=== PATIENT | female | born 1990 | race Caucasian/White ===

== ENCOUNTER 2023-02-08 12:01 | Outpatient (CLI) | payer BC ==
[2023-02-08 12:21] LABS: BASOPHILS # (AUTO) 0.1 10^3/uL (0.0-0.1); BASOPHILS % (AUTO) 0.7 %; EOSINOPHILS % (AUTO) 0.3 %; HCT - HEMATOCRIT 40.8 % (37.0-47.0); HGB - HEMOGLOBIN 13.6 g/dL (12.0-16.0); LYMPHOCYTES # (AUTO) 1.9 10^3/uL (1.5-3.5); LYMPHOCYTES % (AUTO) 27.2 %; MEAN CORPUSCULAR HEMOGLOBIN 30.8 pg (27.0-31.0); MEAN CORPUSCULAR HGB CONC 33.3 g/dL (32.0-36.0); MEAN CORPUSCULAR VOLUME 92.3 fL (81.0-99.0); MEAN PLATELET VOLUME 10.8 fL (7.9-10.8); MONOCYTES # (AUTO) 0.4 10^3/uL (0.0-1.0); MONOCYTES % (AUTO) 5.6 %; NEUTROPHILS # (AUTO) 4.6 10^3/uL (1.5-6.6); NEUTROPHILS % (AUTO) 66.1 %; PLT - PLATELET COUNT 217 10^3/uL (130-450); RED BLOOD COUNT 4.42 10^6/uL (4.20-5.40)
[2023-02-08 13:21] LABS: ALBUMIN 4.3 g/dL (3.2-5.5); ALBUMIN/GLOBULIN RATIO 1.4 (1.0-2.2); BILIRUBIN,TOTAL 0.2 mg/dL (0.2-1.0); CALCIUM 9.2 mg/dL (8.5-10.3); CREATININE 0.8 mg/dL (0.4-1.0); POTASSIUM 4.1 mmol/L (3.5-5.0); TOTAL PROTEIN 7.4 g/dL (6.7-8.2); URIC ACID 4.3 mg/dL (2.6-7.2)
== END 2023-02-08 12:02 | disposition home or self-care (01) ==
LOC: LAB 12:01
PROVIDERS: ATTEND Nurse Practitioner
DX: I10 Essential (primary) hypertension (principal); Z13.0 Encounter for screening for diseases of the blood and blood-forming organs and certain disorders involving the immune mechanism
CPT/HCPCS: 36415; 80053; 82728; 84550; 85025

== ENCOUNTER 2023-02-09 08:00 | Outpatient (CLI) | payer BC ==
[2023-02-09 21:55] LABS: BACTERIAL VAGINOSIS DNA NEGATIVE (NEGATIVE); CANDIDA GLABRATA DNA NEGATIVE (NEGATIVE); CANDIDA GROUP DNA POSITIVE (NEGATIVE); CANDIDA KRUSEI DNA NEGATIVE (NEGATIVE); TRICHOMONAS VAGINALIS DNA NEGATIVE (NEGATIVE)
== END 2023-02-09 23:59 | disposition home or self-care (01) ==
LOC: LAB.WC 08:00
PROVIDERS: ATTEND Nurse Practitioner
DX: N89.8 Other specified noninflammatory disorders of vagina (principal)
CPT/HCPCS: 81514

== ENCOUNTER 2023-04-28 08:00 | Outpatient (CLI) | payer BC ==
[2023-04-28 17:00] LABS: BILIRUBIN,URINE NEGATIVE (NEGATIVE); GLUCOSE, URINE (UA) NEGATIVE (NEGATIVE); KETONES,URINE (UA) NEGATIVE (NEGATIVE); LEUKOCYTE ESTERASE, URINE NEGATIVE (NEGATIVE); NITRITE,URINE NEGATIVE (NEGATIVE); OCCULT BLOOD,URINE NEGATIVE (NEGATIVE); PROTEIN,URINE NEGATIVE (NEGATIVE); UROBILINOGEN,URINE 0.2 (NORMAL) E.U./dL (NORMAL)
[2023-04-28 17:01] LABS: CLARITY,URINE CLEAR (CLEAR)
[2023-04-28 17:07] LABS: RBC,URINE None Seen /HPF (0-5); SQUAMOUS EPITHELIAL CELL,UR FEW Squamous (<= Few); WBC,URINE 0-3 /HPF (0-5)
[2023-04-28 17:08] LABS: BACTERIA,URINE Rare /HPF (None Seen)
== END 2023-04-28 23:59 | disposition home or self-care (01) ==
LOC: LAB.WC 08:00
PROVIDERS: ATTEND Obstetrics & Gynecology
DX: Z34.90 Encounter for supervision of normal pregnancy, unspecified, unspecified trimester (principal)
CPT/HCPCS: 81001; 87086

== ENCOUNTER 2023-05-03 11:26 | Outpatient (CLI) | payer BC ==
[2023-05-03 11:48] LABS: BASOPHILS % (AUTO) 0.4 %; EOSINOPHILS % (AUTO) 0.1 %; HCT - HEMATOCRIT 39.4 % (37.0-47.0); HGB - HEMOGLOBIN 13.6 g/dL (12.0-16.0); LYMPHOCYTES # (AUTO) 1.9 10^3/uL (1.5-3.5); LYMPHOCYTES % (AUTO) 22.9 %; MEAN CORPUSCULAR HEMOGLOBIN 31.7 pg (27.0-31.0); MEAN CORPUSCULAR HGB CONC 34.5 g/dL (32.0-36.0); MEAN CORPUSCULAR VOLUME 91.8 fL (81.0-99.0); MEAN PLATELET VOLUME 10.6 fL (7.9-10.8); MONOCYTES # (AUTO) 0.4 10^3/uL (0.0-1.0); MONOCYTES % (AUTO) 4.7 %; NEUTROPHILS # (AUTO) 6.1 10^3/uL (1.5-6.6); NEUTROPHILS % (AUTO) 71.5 %; PLT - PLATELET COUNT 187 10^3/uL (130-450); RED BLOOD COUNT 4.29 10^6/uL (4.20-5.40); RED CELL DISTRIBUTION WIDTH 11.9 % (12.0-15.0); WHITE BLOOD COUNT 8.5 x10^3/uL (4.8-10.8)
[2023-05-04 03:09] LABS: HBsAG SCREEN Negative (Negative); HCV AB Non Reactive (Non Reactive); HIV SCREEN 4TH GENERATION Non Reactive (Non Reactive); RPR Non Reactive (Non Reactive)
[2023-05-04 12:09] LABS: VARICELLA-ZOSTER AB IGG 1564 index (Immune >165)
== END 2023-05-03 11:27 | disposition home or self-care (01) ==
LOC: LAB 11:26
PROVIDERS: ATTEND Obstetrics & Gynecology
DX: Z34.90 Encounter for supervision of normal pregnancy, unspecified, unspecified trimester (principal)
CPT/HCPCS: 36415; 85025; 86592; 86762; 86787; 86803; 86850; 86900; 86901; 87340; 87389

== ENCOUNTER 2023-05-06 19:28 | Outpatient (CLI) | payer BC ==
--- NOTE | 2023-05-06 22:01 | Ultrasound Report ---
PROCEDURE: OB First Trimester w/TV INDICATIONS: POSITIVE TEST OUTSIDE/PRIOR DATING DATA: Last menstrual period (LMP): 03/16/2023. TECHNIQUE: Real-time scanning was performed of the fetus and maternal pelvic organs, with image documentation. Endovaginal scanning was also performed to better visualize the fetus and maternal ovaries. COMPARISON: None. FINDINGS: Embryo: There is an intrauterine with an irregular gestational sac which demonstrates a me an sac diameter of 2.9 cm corresponding to a calculated gestational age of 8 weeks 0 days. No yolk sa c or pole identified. There is a heterogeneous subchorionic hematoma measuring approximately 1. 5 x 1.6 x 1.6 cm. Measurement variability in dating: +/- 4 weeks by LMP, +/- 7 days by mean sac diameter (use before 6 weeks gestation if crown-rump length not able to be measured), +/- 5 days by crown-rump length (6-12 weeks gestation). Maternal organs: In the right adnexa, there is a heterogeneous mass measuring approximately 3.7 x 2.9 x 3.7 cm with hyperechoic shadowing components which may represent internal fat. No internal vascula rity within the mass on color Doppler interrogation. The right ovary is otherwise not separately visu alized. The left ovary is within normal size limits. There is a hypoechoic structure within the left ovary measuring up to 2.2 cm compatible with corpus luteum. IMPRESSION: 1. Intrauterine gestational sac identified without evidence of a pole or yolk sac. The findings likely represent an anembryonic . 2. Small perigestational subchorionic hematoma. 3. Heterogeneous right adnexal mass with internal hyperechoic components compatible with fat. The fin dings are suggestive of a dermoid. Consider follow-up nonemergent evaluation with pelvic MRI for furt her evaluation. An ectopic is in the differential but considered less likely. 4. Probable corpus luteum within the left ovary. Reviewed by: Hoang Stearns MD on 05/06/2023 9:59 PM PDT Approved by: Hoang Stearns MD on 05/06/2023 9:59 PM PDT Station ID: [id number]
== END 2023-05-06 19:29 | disposition home or self-care (01) ==
LOC: DI 19:28
PROVIDERS: ATTEND Obstetrics & Gynecology
DX: O36.80X0 Pregnancy with inconclusive fetal viability, not applicable or unspecified (principal); O46.90 Antepartum hemorrhage, unspecified, unspecified trimester; O99.891 Other specified diseases and conditions complicating pregnancy; Z3A.00 Weeks of gestation of pregnancy not specified

== ENCOUNTER 2023-05-17 15:23 | Outpatient (CLI) | payer BC | END 2023-05-17 15:24 | disposition home or self-care (01) | LOC: LAB 15:23 | PROVIDERS: ATTEND Nurse Practitioner | DX: O02.0 Blighted ovum and nonhydatidiform mole (principal) | CPT/HCPCS: 36415; 84702 ==

== ENCOUNTER 2023-05-24 13:31 | Outpatient (CLI) | payer BC | END 2023-05-24 13:32 | disposition home or self-care (01) | LOC: LAB 13:31 | PROVIDERS: ATTEND Nurse Practitioner | DX: O02.0 Blighted ovum and nonhydatidiform mole (principal) | CPT/HCPCS: 36415; 84702 ==

== ENCOUNTER 2023-06-17 13:22 | Outpatient (CLI) | payer BC | END 2023-06-17 13:23 | disposition home or self-care (01) | LOC: LAB 13:22 | PROVIDERS: ATTEND Nurse Practitioner | DX: Z67.91 Unspecified blood type, Rh negative (principal) | CPT/HCPCS: 36415; 84702 ==

== ENCOUNTER 2023-07-06 12:31 | Outpatient (CLI) | payer BC | END 2023-07-06 12:32 | disposition home or self-care (01) | LOC: LAB 12:31 | PROVIDERS: ATTEND Nurse Practitioner | DX: O02.0 Blighted ovum and nonhydatidiform mole (principal); Z67.91 Unspecified blood type, Rh negative | CPT/HCPCS: 36415; 84702 ==

== ENCOUNTER 2023-07-20 11:53 | Outpatient (CLI) | payer BC | END 2023-07-20 11:54 | disposition home or self-care (01) | LOC: LAB 11:53 | PROVIDERS: ATTEND Nurse Practitioner | DX: O36.0910 Maternal care for other rhesus isoimmunization, first trimester, not applicable or unspecified (principal); O02.0 Blighted ovum and nonhydatidiform mole | CPT/HCPCS: 36415; 84702 ==

== ENCOUNTER 2024-03-05 13:58 | Outpatient (CLI) | payer BC | END 2024-03-05 13:59 | disposition home or self-care (01) | LOC: LAB 13:58 | PROVIDERS: ATTEND Nurse Practitioner | DX: Z31.69 Encounter for other general counseling and advice on procreation (principal) | CPT/HCPCS: 36415; 82166; 84144 ==

== ENCOUNTER 2024-03-08 19:30 | Outpatient (CLI) | payer BC ==
--- NOTE | 2024-03-09 16:38 | Ultrasound Report ---
PROCEDURE: Pelvic Complete INDICATIONS: FERITILITY PLANNING TECHNIQUE: Real-time transabdominal scanning was performed of the pelvic organs, with image documentation. COMPARISON: OB ultrasound on May 06, 2023 FINDINGS: Evaluation is limited secondary to transabdominal view only. Uterus: Uterus is anteverted and normal in size at 8.4 x 4.1 x 5.9 cm. The myometrium is heterogene ous. The endometrium measures 8.8 mm in combined thickness. Ovaries: The right ovary measures 5.8 x 6.2 x 4.9 cm, with a calculated ovarian volume of 92.5 cc. H eterogeneous right ovarian mass measuring 4.5 x 4.4 x 4.3 cm with hyperechoic region, previously 3.7 x 2.9 x 3.7 cm. The left ovary measures 3.1 x 2.4 x 2.7 cm, with a calculated ovarian volume of 10.3 cc. Thick walled cyst measuring 2.2 x 1.7 x 2 cm. Less than 12 follicles can be seen in each ovary. Other: No free pelvic fluid. IMPRESSION: Evaluation is limited secondary to transabdominal view only. 1.Heterogeneous right ovarian mass measuring 4.5 x 4.4 x 4.3 cm with hyperechoic region has increased in size, previously 3.7 x 2.9 x 3.7 cm. This is indeterminate. Recommend a pelvic MRI for further ev aluation. 2.Left ovarian thick walled cyst measuring 2.2 x 1.7 x 2 cm may represent an involuting corpus luteum cyst. 3.Normal sonographic appearance of the uterus with endometrial thickness of 8.8 mm. Reviewed by: Davin Jenkins MD on 03/09/2024 4:36 PM PDT Approved by: Davin Jenkins MD on 03/09/2024 4:36 PM PDT Station ID: [id number]
== END 2024-03-08 19:31 | disposition home or self-care (01) ==
LOC: DI 19:30
PROVIDERS: ATTEND Nurse Practitioner
DX: Z31.89 Encounter for other procreative management (principal); N83.8 Other noninflammatory disorders of ovary, fallopian tube and broad ligament; N83.202 Unspecified ovarian cyst, left side

== ENCOUNTER 2024-05-15 15:41 | Outpatient (CLI) | payer BC | END 2024-05-15 15:42 | disposition home or self-care (01) | LOC: LAB 15:41 | PROVIDERS: ATTEND Nurse Practitioner | DX: Z32.01 Encounter for pregnancy test, result positive (principal) | CPT/HCPCS: 36415; 84702 ==

== ENCOUNTER 2024-05-31 16:09 | Outpatient (CLI) | payer BC ==
[2024-05-31 17:00] LABS: THYROID STIMULATING HORMONE 2.1 uIU/mL (0.34-5.60)
[2024-05-31 17:05] LABS: PROLACTIN 16.46 ng/mL
[2024-05-31 22:51] LABS: ESTIMATED AVERAGE GLUCOSE 85 mg/dL (70-100); HEMOGLOBIN A1c% 4.6 % (4.27-6.07)
== END 2024-05-31 16:10 | disposition home or self-care (01) ==
LOC: LAB 16:09
PROVIDERS: ATTEND Obstetrics & Gynecology
DX: N96 Recurrent pregnancy loss (principal)
CPT/HCPCS: 36415; 83036; 84146; 84443; 85598; 85613; 85732; 86146; 86147

== ENCOUNTER 2024-08-16 13:36 | Outpatient (CLI) | payer BC | END 2024-08-16 13:37 | disposition home or self-care (01) | LOC: LAB 13:36 | PROVIDERS: ATTEND Nurse Practitioner | DX: Z32.01 Encounter for pregnancy test, result positive (principal) | CPT/HCPCS: 36415; 84702 ==

== ENCOUNTER 2024-08-18 10:28 | Outpatient (CLI) | payer BC | END 2024-08-18 10:29 | disposition home or self-care (01) | LOC: LAB 10:28 | PROVIDERS: ATTEND Nurse Practitioner | DX: Z32.01 Encounter for pregnancy test, result positive (principal) | CPT/HCPCS: 36415; 84702 ==

== ENCOUNTER 2025-11-19 08:03 | Inpatient (IN) ==
[2025-11-19] MEDS ORDERED: FAMOTIDINE 20 MG/2 ML VIAL IVP PRN (08:13)
[2025-11-19] MEDS ORDERED: hydrALAZINE INJ 20 MG/ML VIAL IVP PRN (08:13)
[2025-11-19] MEDS ORDERED: ONDANSETRON ODT 4 MG TABLET PO PRN (08:13)
[2025-11-19] MEDS ORDERED: LABETALOL 20 MG/4 ML SYRINGE IVP PRN ×3 (08:13)
[2025-11-19] MEDS ORDERED: ACETAMINOPHEN 500 MG TABLET PO PRN (08:13)
[2025-11-19] MEDS ORDERED: SODIUM CHLORIDE FLUSH 0.9% 10 ML SYRINGE IVP PRN (08:13)
[2025-11-19] MEDS ORDERED: OXYTOCIN 10 UNIT/ML VIAL IM PRN (08:13)
[2025-11-19] MEDS ORDERED: TERBUTALINE 1 MG/ML VIAL SUBQ PRN (08:13)
[2025-11-19] MEDS ORDERED: fentaNYL 100 MCG/2 ML VIAL IVP PRN (08:13)
[2025-11-19] MEDS ORDERED: TRANEXAMIC ACID IN NACL 1,000 MG/100 ML BAG IV PRN (08:13)
[2025-11-19] MEDS ORDERED: CARBOPROST TROMETHAMINE 250 MCG/ML VIAL IM PRN (08:13)
[2025-11-19] MEDS ORDERED: METOCLOPRAMIDE 10 MG/2 ML VIAL IVP PRN (08:13)
[2025-11-19] MEDS ORDERED: CALCIUM CARBONATE CHEW 500 MG TABLET PO PRN (08:13)
--- OUTSIDE RECORDS SUMMARY | 2025-11-19 08:23 | EXTERNAL MEDICAL SUMMARY RPT | Continuity of Care Document ---
Author Organization [facility] Address [address] [place] [id number] Phone Allergies and Intolerances date description facility reaction severity 2025-06-07 10:00 [id number]^No Known Drug Allergies^^No Known Drug Allergies^^allergy.id [facility] (no reaction) (no severity) 2025-07-24 10:00 [id number]^No Known Drug Allergies^^No Known Drug Allergies^^allergy.id [facility] (no reaction) (no severity) 2025-09-04 10:00 [id number]^No Known Drug Allergies^^No Known Drug Allergies^^allergy.id [facility] (no reaction) (no severity) 2025-10-02 10:00 [id number]^No Known Drug Allergies^^No Known Drug Allergies^^allergy.id [facility] (no reaction) (no severity) 2025-10-30 10:00 [id number]^No Known Drug Allergies^^No Known Drug Allergies^^allergy.id [facility] (no reaction) (no severity) 2025-11-01 10:00 [id number]^No Known Drug Allergies^^No Known Drug Allergies^^allergy.id [facility] (no reaction) (no severity) 2025-11-08 10:00 [id number]^No Known Drug Allergies^^No Known Drug Allergies^^allergy.id [facility] (no reaction) (no severity) Problems date description facility 2025-08-07 15:39 Encounter for superv ision of normal first , unspecified trimester [facility] 2025-08-07 15:41 Encounter for superv ision of normal first , unspecified trimester [facility] 2025-09-04 18:12 Encounter for superv ision of normal first , unspecified trimester [facility] 2025-09-11 08:02 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, second trimester [email or web address] 2025-09-11 08:02 26 weeks gestation of [email or web address] 2025-09-11 09:59 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, second trimester [email or web address] 2025-09-11 09:59 Encounter for superv ision of normal , unspecified, unspecified trimester [email or web address] 2025-09-12 00:04 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, second trimester [email or web address] 2025-09-12 00:04 Encounter for superv ision of normal , unspecified, unspecified trimester [email or web address] 2025-09-12 12:28 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, second trimester [email or web address] 2025-09-13 11:20 Other specified preg nirali related conditions, unspecified trimester [email or web address] 2025-09-13 11:20 Encounter for immunization [facility] 2025-09-13 11:20 Unspecified blood type, Rh nega tive [email or web address] 2025-09-17 07:55 Other specified preg nirali related conditions, unspecified trimester [email or web address] 2025-09-17 07:55 Maternal care for an ti-D [Rh] antibodies, second trimester, not applicable or unspecified [email or web address] 2025-09-17 07:55 Encounter for immunization [facility] 2025-09-17 07:55 Unspecified blood type, Rh nega tive [email or web address] 2025-09-17 07:56 Other specified preg nirali related conditions, unspecified trimester [email or web address] 2025-09-17 07:56 Maternal care for an ti-D [Rh] antibodies, second trimester, not applicable or unspecified [email or web address] 2025-09-17 07:56 Encounter for immunization [facility] 2025-09-17 07:56 27 weeks gestation of [email or web address] 2025-09-17 07:56 Unspecified blood type, Rh nega tive [email or web address] 2025-10-02 18:10 Encounter for superv ision of normal first , unspecified trimester [email or web address] 2025-10-05 15:30 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, third [facility] 2025-10-15 08:49 Encounter for superv ision of normal first , unspecified [facility]25-[facility] 08:52 Encounter for superv ision of normal first , unspecified trimester [facility] 2025-10-16 00:01 Encounter for superv ision of normal first , unspecified trimester [facility] 2025-10-31 00:03 Encounter for immunization [facility] [employer] [facility] 2025-10-31 08:57 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, second trimester [facility] 2025-11-01 00:04 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, second trimester [facility] 2025-11-01 14:54 Gestational [pregnan cy-induced] hypertension without significant proteinuria, unspecified trimester [facility] 2025-11-01 15:12 Gestational [pregnan cy-induced] hypertension without significant proteinuria, unspecified trimester [facility] 2025-11-01 15:13 Gestational [pregnan cy-induced] hypertension without significant proteinuria, unspecified trimester [facility] 2025-11-01 15:13 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, second trimester [facility] 2025-11-01 16:14 Gestational [pregnan cy-induced] hypertension without significant proteinuria, unspecified trimester [facility] 2025-11-02 06:32 Gestational [pregnan cy-induced] hypertension without significant proteinuria, unspecified trimester [facility] 2025-11-02 08:51 Gestational [pregnan cy-induced] hypertension without significant proteinuria, third trimester [facility] 2025-11-02 08:51 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, third trimester [facility] 2025-11-02 08:51 Encounter for immunization [facility] [employer] [facility] 2025-11-02 08:51 34 weeks gestation of [facility] 2025-11-02 12:01 Gestational [pregnan cy-induced] hypertension without significant proteinuria, unspecified trimester [facility] 2025-11-02 12:03 Gestational [pregnan cy-induced] hypertension without significant proteinuria, unspecified trimester [facility] 2025-11-05 12:33 Gestational [pregnan cy-induced] hypertension without significant proteinuria, third trimester [facility] 2025-11-05 12:33 Gestational [pregnan cy-induced] hypertension without significant proteinuria, unspecified trimester Counts Include [facility] 2025-11-05 12:34 Gestational [pregnan cy-induced] hypertension without significant proteinuria, third trimester Counts Include [facility] 2025-11-05 12:34 Gestational [pregnan cy-induced] hypertension without significant proteinuria, unspecified trimester Counts Include [facility] 2025-11-05 12:34 34 weeks gestation of Counts Include [facility] 2025-11-08 09:02 Gestational [pregnan cy-induced] hypertension without significant proteinuria, unspecified trimester Counts Include [facility] 2025-11-08 09:39 Gestational [pregnan cy-induced] hypertension without significant proteinuria, unspecified trimester Counts Include [facility] 2025-11-08 14:20 Gestational [pregnan cy-induced] hypertension without significant proteinuria, unspecified trimester Counts Include [facility] 2025-11-09 00:03 Gestational [pregnan cy-induced] hypertension without significant proteinuria, unspecified trimester Counts Include [facility] 2025-11-09 00:03 Encounter for screeni ng for Streptococcus B Counts Include [facility] 2025-11-12 08:15 Gestational [pregnan cy-induced] hypertension without significant proteinuria, unspecified trimester Counts Include [facility] 2025-11-12 09:58 Gestational [pregnan cy-induced] hypertension without significant proteinuria, unspecified trimester Counts Include [facility] 2025-11-12 11:01 Gestational [pregnan cy-induced] hypertension without significant proteinuria, third trimester Counts Include [facility] 2025-11-12 11:02 Gestational [pregnan cy-induced] hypertension without significant proteinuria, third trimester Counts Include [facility] 2025-11-12 11:02 Gestational [pregnan cy-induced] hypertension without significant proteinuria, unspecified trimester Counts Include [facility] 2025-11-12 11:02 Encounter for screeni ng for Streptococcus B Counts Include [facility] 2025-11-12 11:02 35 weeks gestation of Counts Include [facility] 2025-11-12 13:04 Gestational [pregnan cy-induced] hypertension without significant proteinuria, unspecified trimester Counts Include [facility] 2025-11-12 13:21 Gestational [pregnan cy-induced] hypertension without significant proteinuria, unspecified trimester Counts Include [facility] 2025-11-12 13:50 Gestational [pregnan cy-induced] hypertension without significant proteinuria, unspecified trimester Counts Include [facility] 2025-11-12 15:21 Gestational [pregnan cy-induced] hypertension without significant proteinuria, unspecified trimester Counts Include [facility] 2025-11-13 00:02 Gestational [pregnan cy-induced] hypertension without significant proteinuria, unspecified trimester Counts Include [facility] 2025-11-14 08:50 Gestational [pregnan cy-induced] hypertension without significant proteinuria, third trimester Counts Include [facility] 2025-11-14 08:50 Gestational [pregnan cy-induced] hypertension without significant proteinuria, unspecified trimester Counts Include [facility] 2025-11-14 08:50 36 weeks gestation of Counts Include [facility] 2025-11-14 12:13 Gestational [pregnan cy-induced] hypertension without significant proteinuria, unspecified trimester Counts Include [facility] 2025-11-15 00:03 Gestational [pregnan cy-induced] hypertension without significant proteinuria, unspecified trimester Counts Include [facility] 2025-11-16 13:33 Gestational [pregnan cy-induced] hypertension without significant proteinuria, third trimester Counts Include [facility] 2025-11-16 13:33 Gestational [pregnan cy-induced] hypertension without significant proteinuria, unspecified trimester Counts Include [facility] 2025-11-16 13:33 36 weeks gestation of Counts Include [facility] Results/Labs test date facility value unit notes Result panel 1 PROTEIN/CREATININE RATIO,URINE 2025-09-11 10:14 [facility] 0.1 (missing) (missing) BILIRUBIN,TOTAL 2025-09-11 10:14 [facility] 0.4 mg/dl As of May 2023 testing method has changed, this may include reference ranges. CREATININE 2025-09-11 10:14 [email or web address] 0.7 mg/dl As of May 2023 testing method has changed, this may include reference ranges. ALBUMIN/GLOBULIN RATIO 2025-09-11 10:14 [email or web address] 1.5 (missing) (missing) BUN - BLOOD UREA NITROGEN 2025-09-11 10:14 [email or web address] 10 mg/dl As of May 2023 testing method has changed, this may include reference ranges. MEAN PLATELET VOLUME 2025-09-11 10:14 [facility] 10.1 fl (missing) WHITE BLOOD COUNT 2025-09-11 10:14 [facility] 10.8 x10 3/ul (missing) CREATININE,URINE 2025-09-11 10:14 [email or web address] 102.4 mg/dl As of May 2023 testing method has changed, this may include reference ranges. CHLORIDE 2025-09-11 10:14 [facility] 104 mmol/l As of May 2023 testing method has changed, this may include reference ranges. ALT ALANINE AMINOTRANSFERASE 2025-09-11 10:14 [email or web address] 11 iu/l As of May 2023 testing method has changed, this may include reference ranges. HGB - HEMOGLOBIN 2025-09-11 10:14 [facility] 12.1 g/dl (missing) RED CELL DISTRIBUTION WIDTH 2025-09-11 10:14 [email or web address] 13.6 % (missing) SODIUM 2025-09-11 10:14 [email or web address] 135 mmol/l (missing) AST ASPARTATE AMINOTRANSFERASE 2025-09-11 10:14 [email or web address] 15 iu/l As of May 2023 testing method has changed, this may include reference ranges. PLT - PLATELET COUNT 2025-09-11 10:14 [facility] 180 10 3/ul (missing) GLOBULIN 2025-09-11 10:14 [facility] 2.7 g/dl (missing) CARBON DIOXIDE - CO2 2025-09-11 10:14 [email or web address] 26 mmol/l As of May 2023 testing method has changed, this may include reference ranges. RED BLOOD COUNT 2025-09-11 10:14 [facility] 3.63 10 6/ul (missing) POTASSIUM 2025-09-11 10:14 [facility] 3.7 mmol/l As of May 2023 testing method has changed, this may include reference ranges. MEAN CORPUSCULAR HEMOGLOBIN 2025-09-11 10:14 [facility] 33.3 pg (missing) MEAN CORPUSCULAR HGB CONC 2025-09-11 10:14 [facility] 34.0 g/dl (missing) HCT - HEMATOCRIT 2025-09-11 10:14 [email or web address] 35.6 % (missing) ALBUMIN 2025-09-11 10:14 [email or web address] 4.0 g/dl As of May 2023 testing method has changed, this may include reference ranges. ANION GAP 2025-09-11 10:14 [email or web address] 5.0 (missing) (missing) TOTAL PROTEIN 2025-09-11 10:14 [email or web address] 6.7 g/dl As of May 2023 testing method has changed, this may include reference ranges. TOTAL PROTEIN,URINE TIMED 2025-09-11 10:14 [email or web address] 7 mg/dl As of May 2023 testing method has changed, this may include reference ranges. ALKALINE PHOSPHATASE 2025-09-11 10:14 [email or web address] 85 iu/l As of May 2023 testing method has changed, this may include reference ranges. CALCIUM 2025-09-11 10:14 [email or web address] 9.0 mg/dl As of May 2023 testing method has changed, this may include reference ranges. GLUCOSE,1H PP 50GM DOSE 2025-09-11 10:14 [email or web address] 94 mg/dl 50g Challenge 1 hr post Glucose < 140 mg/dL Reference: [place] [employer] As of May 2023 testing method has changed, this may include reference ranges. GLUCOSE 2025-09-11 10:14 [email or web address] 94 mg/dl As of May 2023 testing method has changed, this may include reference ranges. GFR - MDRD 2025-09-11 10:14 [email or web address] 97 (missing) The IDMS-traceable MDRD Study Equation has been validated extensively in and populations between the ages of 18 and 70 with impaired kidney function (eGFR < 60 mL/min/1.73m2) and has shown good performance for patients with all common causes of kidney disease. Although this equation has not been validated for patients older than 70, an MDRD-derived eGFR may still be a useful tool for providers caring for patients older than 70. References: http://www.nkde p.nih.gov/lab-e valuation/gfr/c reatinine-stand ardization, last updated January 2012. MEAN CORPUSCULAR VOLUME 2025-09-11 10:14 [email or web address] 98.1 fl (missing) RPR 2025-09-11 10:14 [email or web address] Non Reactive (missing) Performed at: [facility] [address] [address], [place], [place] [id number] Skid Wrapper: Hoang North MD, Phone: [phone] Result panel 2 BILIRUBIN,TOTAL 2025-10-31 09:06 [email or web address] 0.4 mg/dl As of May 2023 testing method has changed, this may include reference ranges. CREATININE 2025-10-31 09:06 [email or web address] 0.7 mg/dl As of May 2023 testing method has changed, this may include reference ranges. ALBUMIN/GLOBULIN RATIO 2025-10-31 09:06 [email or web address] 1.5 (missing) (missing) BUN - BLOOD UREA NITROGEN 2025-10-31 09:06 [email or web address] 10 mg/dl As of May 2023 testing method has changed, this may include reference ranges. MEAN PLATELET VOLUME 2025-10-31 09:06 [email or web address] 10.8 fl (missing) CHLORIDE 2025-10-31 09:06 [email or web address] 104 mmol/l As of May 2023 testing method has changed, this may include reference ranges. WHITE BLOOD COUNT 2025-10-31 09:06 [email or web address] 12.3 x10 3/ul (missing) AST ASPARTATE AMINOTRANSFERASE 2025-10-31 09:06 [email or web address] 13 iu/l As of May 2023 testing method has changed, this may include reference ranges. HGB - HEMOGLOBIN 2025-10-31 09:06 [email or web address] 13.2 g/dl (missing) RED CELL DISTRIBUTION WIDTH 2025-10-31 09:06 [email or web address] 13.7 % (missing) SODIUM 2025-10-31 09:06 [email or web address] 136 mmol/l (missing) PLT - PLATELET COUNT 2025-10-31 09:06 [email or web address] 174 10 3/ul (missing) ALKALINE PHOSPHATASE 2025-10-31 09:06 [email or web address] 178 iu/l As of May 2023 testing method has changed, this may include reference ranges. GLOBULIN 2025-10-31 09:06 [email or web address] 2.7 g/dl (missing) CARBON DIOXIDE - CO2 2025-10-31 09:06 [email or web address] 25 mmol/l As of May 2023 testing method has changed, this may include reference ranges. RED BLOOD COUNT 2025-10-31 09:06 [email or web address] 3.92 10 6/ul (missing) MEAN CORPUSCULAR HEMOGLOBIN 2025-10-31 09:06 [email or web address] 33.7 pg (missing) MEAN CORPUSCULAR HGB CONC 2025-10-31 09:06 [email or web address] 34.3 g/dl (missing) HCT - HEMATOCRIT 2025-10-31 09:06 [email or web address] 38.5 % (missing) ALBUMIN 2025-10-31 09:06 [email or web address] 4.0 g/dl As of May 2023 testing method has changed, this may include reference ranges. POTASSIUM 2025-10-31 09:06 [email or web address] 4.1 mmol/l As of May 2023 testing method has changed, this may include reference ranges. TOTAL PROTEIN 2025-10-31 09:06 [email or web address] 6.7 g/dl As of May 2023 testing method has changed, this may include reference ranges. ANION GAP 2025-10-31 09:06 [email or web address] 7.0 (missing) (missing) GLUCOSE 2025-10-31 09:06 [email or web address] 79 mg/dl As of May 2023 testing method has changed, this may include reference ranges. ALT ALANINE AMINOTRANSFERASE 2025-10-31 09:06 [email or web address] 9 iu/l As of May 2023 testing method has changed, this may include reference ranges. CALCIUM 2025-10-31 09:06 [email or web address] 9.5 mg/dl As of May 2023 testing method has changed, this may include reference ranges. GFR - MDRD 2025-10-31 09:06 [email or web address] 97 (missing) The IDMS-traceable MDRD Study Equation has been validated extensively in and populations between the ages of 18 and 70 with impaired kidney function (eGFR < 60 mL/min/1.73m2) and has shown good performance for patients with all common causes of kidney disease. Although this equation has not been validated for patients older than 70, an MDRD-derived eGFR may still be a useful tool for providers caring for patients older than 70. References: http://www.nkdep. nih.gov/lab-evalu ation/gfr/creatin ine-stand ardization, last updated January 2012. MEAN CORPUSCULAR VOLUME 2025-10-31 09:06 [facility] 98.2 fl (missing) Result panel 3 PROTEIN/CREATININE RATIO,URINE 2025-10-31 09:10 [facility] 0.1 (missing) (missing) TOTAL PROTEIN,URINE TIMED 2025-10-31 09:10 [facility] 9 mg/dl As of May 2023 testing method has changed, this may include reference ranges. CREATININE,URINE 2025-10-31 09:10 [facility] 90.9 mg/dl As of May 2023 testing method has changed, this may include reference ranges. Result panel 4 PROTEIN/CREATININE RATIO,URINE 2025-11-08 09:49 [facility] 0.1 (missing) (missing) BILIRUBIN,TOTAL 2025-11-08 09:49 [email or web address] 0.4 mg/dl As of May 2023 testing method has changed, this may include reference ranges. CREATININE 2025-11-08 09:49 [email or web address] 0.7 mg/dl As of May 2023 testing method has changed, this may include reference ranges. ALBUMIN/GLOBULIN RATIO 2025-11-08 09:49 [email or web address] 1.4 (missing) (missing) ALT ALANINE AMINOTRANSFERASE 2025-11-08 09:49 [email or web address] 10 iu/l As of May 2023 testing method has changed, this may include reference ranges. BUN - BLOOD UREA NITROGEN 2025-11-08 09:49 [email or web address] 10 mg/dl As of May 2023 testing method has changed, this may include reference ranges. MEAN PLATELET VOLUME 2025-11-08 09:49 [facility] 10.4 fl (missing) CHLORIDE 2025-11-08 09:49 [facility] 104 mmol/l As of May 2023 testing method has changed, this may include reference ranges. HGB - HEMOGLOBIN 2025-11-08 09:49 [facility] 12.8 g/dl (missing) RED CELL DISTRIBUTION WIDTH 2025-11-08 09:49 [facility] 13.6 % (missing) SODIUM 2025-11-08 09:49 [facility] 136 mmol/l (missing) AST ASPARTATE AMINOTRANSFERASE 2025-11-08 09:49 [email or web address] 18 iu/l As of May 2023 testing method has changed, this may include reference ranges. PLT - PLATELET COUNT 2025-11-08 09:49 [facility] 182 10 3/ul (missing) GLOBULIN 2025-11-08 09:49 [email or web address] 2.7 g/dl (missing) ALKALINE PHOSPHATASE 2025-11-08 09:49 [email or web address] 226 iu/l As of May 2023 testing method has changed, this may include reference ranges. CARBON DIOXIDE - CO2 2025-11-08 09:49 [email or web address] 25 mmol/l As of May 2023 testing method has changed, this may include reference ranges. RED BLOOD COUNT 2025-11-08 09:49 [email or web address] 3.85 10 6/ul (missing) ALBUMIN 2025-11-08 09:49 [email or web address] 3.9 g/dl As of May 2023 testing method has changed, this may include reference ranges. POTASSIUM 2025-11-08 09:49 [email or web address] 3.9 mmol/l As of May 2023 testing method has changed, this may include reference ranges. MEAN CORPUSCULAR HEMOGLOBIN 2025-11-08 09:49 [email or web address] 33.2 pg (missing) MEAN CORPUSCULAR HGB CONC 2025-11-08 09:49 [email or web address] 33.9 g/dl (missing) HCT - HEMATOCRIT 2025-11-08 09:49 [email or web address] 37.8 % (missing) TOTAL PROTEIN 2025-11-08 09:49 [email or web address] 6.6 g/dl As of May 2023 testing method has changed, this may include reference ranges. GLUCOSE 2025-11-08 09:49 [email or web address] 68 mg/dl As of May 2023 testing method has changed, this may include reference ranges. ANION GAP 2025-11-08 09:49 [email or web address] 7.0 (missing) (missing) TOTAL PROTEIN,URINE TIMED 2025-11-08 09:49 [email or web address] 9 mg/dl As of May 2023 testing method has changed, this may include reference ranges. CALCIUM 2025-11-08 09:49 [facility] 9.0 mg/dl As of May 2023 testing method has changed, this may include reference ranges. WHITE BLOOD COUNT 2025-11-08 09:49 [facility] 9.6 x10 3/ul (missing) CREATININE,URINE 2025-11-08 09:49 [facility] 94.0 mg/dl As of May 2023 testing method has changed, this may include reference ranges. GFR - MDRD 2025-11-08 09:49 [facility] 97 (missing) The IDMS-traceable MDRD Study Equation has been validated extensively in and populations between the ages of 18 and 70 with impaired kidney function (eGFR < 60 mL/min/1.73m2) and has shown good performance for patients with all common causes of kidney disease. Although this equation has not been validated for patients older than 70, an MDRD-derived eGFR may still be a useful tool for providers caring for patients older than 70. References: http://www.nkdep. nih.gov/lab-evalu ation/gfr/creatin ine-stand ardization, last updated January 2012. MEAN CORPUSCULAR VOLUME 2025-11-08 09:49 [facility] 98.2 fl (missing) Result panel 5 GROUP B STREP PCR 2025-11-08 19:33 [facility] NEGATIVE (missing) VAGINAL/RECTAL Result panel 6 NUCLEATED RED BLOOD CELLS AUTO 2025-11-14 12:20 [facility] 0.0 /100wbc (missing) BASOPHILS # (AUTO) 2025-11-14 12:20 [facility] 0.0 10 3/ul (missing) EOSINOPHILS # (AUTO) 2025-11-14 12:20 [facility] 0.0 10 3/ul (missing) NRBC ABSOLUTE COUNT (AUTO) 2025-11-14 12:20 [facility] 0.00 x10 3/ul (missing) BILIRUBIN,TOTAL 2025-11-14 12:20 [facility] 0.3 mg/dl As of May 2023 testing method has changed, this may include reference ranges. CREATININE 2025-11-14 12:20 [facility] 0.6 mg/dl As of May 2023 testing method has changed, this may include reference ranges. MONOCYTES # (AUTO) 2025-11-14 12:20 [email or web address] 0.8 10 3/ul (missing) ALBUMIN/GLOBULIN RATIO 2025-11-14 12:20 [email or web address] 1.5 (missing) (missing) BUN - BLOOD UREA NITROGEN 2025-11-14 12:20 [email or web address] 10 mg/dl As of May 2023 testing method has changed, this may include reference ranges. MEAN PLATELET VOLUME 2025-11-14 12:20 [email or web address] 10.7 fl (missing) CHLORIDE 2025-11-14 12:20 [email or web address] 104 mmol/l As of May 2023 testing method has changed, this may include reference ranges. ALT ALANINE AMINOTRANSFERASE 2025-11-14 12:20 [email or web address] 11 iu/l As of May 2023 testing method has changed, this may include reference ranges. WHITE BLOOD COUNT 2025-11-14 12:20 [email or web address] 11.9 x10 3/ul (missing) GFR - MDRD 2025-11-14 12:20 [email or web address] 116 (missing) The IDMS-traceable MDRD Study Equation has been validated extensively in and populations between the ages of 18 and 70 with impaired kidney function (eGFR < 60 mL/min/1.73m2) and has shown good performance for patients with all common causes of kidney disease. Although this equation has not been validated for patients older than 70, an MDRD-derived eGFR may still be a useful tool for providers caring for patients older than 70. References: http://www.nkdep. nih.gov/lab-evalu ation/gfr/creatin ine-stand ardization, last updated January 2012. HGB - HEMOGLOBIN 2025-11-14 12:20 [email or web address] 12.8 g/dl (missing) RED CELL DISTRIBUTION WIDTH 2025-11-14 12:20 [email or web address] 13.5 % (missing) SODIUM 2025-11-14 12:20 [email or web address] 134 mmol/l (missing) AST ASPARTATE AMINOTRANSFERASE 2025-11-14 12:20 [email or web address] 15 iu/l As of May 2023 testing method has changed, this may include reference ranges. PLT - PLATELET COUNT 2025-11-14 12:20 [email or web address] 188 10 3/ul (missing) LYMPHOCYTES # (AUTO) 2025-11-14 12:20 [email or web address] 2.1 10 3/ul (missing) GLOBULIN 2025-11-14 12:20 [email or web address] 2.5 g/dl (missing) CARBON DIOXIDE - CO2 2025-11-14 12:20 [email or web address] 24 mmol/l As of May 2023 testing method has changed, this may include reference ranges. ALKALINE PHOSPHATASE 2025-11-14 12:20 [email or web address] 251 iu/l As of May 2023 testing method has changed, this may include reference ranges. RED BLOOD COUNT 2025-11-14 12:20 [email or web address] 3.78 10 6/ul (missing) ALBUMIN 2025-11-14 12:20 [email or web address] 3.8 g/dl As of May 2023 testing method has changed, this may include reference ranges. POTASSIUM 2025-11-14:20 [email or web address] 3.9 mmol/l As of May 2023 testing method has changed, this may include reference ranges. MEAN CORPUSCULAR HEMOGLOBIN 2025-11-14 12:20 [email or web address] 33.9 pg (missing) MEAN CORPUSCULAR HGB CONC 2025-11-14 12:20 [email or web address] 34.4 g/dl (missing) HCT - HEMATOCRIT 2025-11-14 12:20 [email or web address] 37.2 % (missing) ANION GAP 2025-11-14 12:20 [email or web address] 6.0 (missing) (missing) TOTAL PROTEIN 2025-11-14 12:20 [email or web address] 6.3 g/dl As of May 2023 testing method has changed, this may include reference ranges. GLUCOSE 2025-11-14 12:20 [email or web address] 77 mg/dl As of May 2023 testing method has changed, this may include reference ranges. NEUTROPHILS # (AUTO) 2025-11-14 12:20 [email or web address] 8.9 10 3/ul (missing) CALCIUM 2025-11-14 12:20 [email or web address] 9.0 mg/dl As of May 2023 testing method has changed, this may include reference ranges. MEAN CORPUSCULAR VOLUME 2025-11-14 12:20 [email or web address] 98.4 fl (missing) Result panel 7 PROTEIN/CREATININE RATIO,URINE 2025-11-14 12:25 [email or web address] 0.1 (missing) (missing) TOTAL PROTEIN,URINE TIMED 2025-11-14 12:25 [facility] 6 mg/dl As of May 2023 testing method has changed, this may include reference ranges. CREATININE,URINE 2025-11-14 12:25 [email or web address] 69.0 mg/dl As of May 2023 testing method has changed, this may include reference ranges. Social History date description facility
[2025-11-19 09:05] LABS: HCT - HEMATOCRIT 36.2 % (37.0-47.0); HGB - HEMOGLOBIN 12.6 g/dL (12.0-16.0); MEAN PLATELET VOLUME 11.2 fL (7.9-10.8); NRBC ABSOLUTE COUNT (AUTO) 0.00 x10^3/uL; NUCLEATED RED BLOOD CELLS AUTO 0.0 /100WBC; PLT - PLATELET COUNT 167 10^3/uL (130-450); RED CELL DISTRIBUTION WIDTH 13.2 % (12.0-15.0)
--- NOTE | 2025-11-19 09:19 | HISTORY & PHYSICAL EXAMINATION ---
Admit History Smoking Status: Never smoker Other Maternal History Other Maternal History: HPI: This 34 yo @ 37+1 weeks by LMP and confirmed by 8-week ultrasound. Here today for scheduled medical induction of labor for gestational hypertension. Upon arrival, she has not been experiencing sharron, initial SVE deferred. We reviewed management options at length, agreeable to plan of care to begin with preinduction cervical ripening with misoprostol. Both Alli and her Ryan participated in the [facility]. She has been a patient of [facility] for the duration of her which has remained uncomplicated apart from gestational hypertension (no hypertensive medication management). She has been on LDASA since 12 weeks gestation. Reviewed that risks of labor include but are not limited to section, prolonged labor, vacuum extraction, episiotomy, hemorrhage, and additional risks exist re: prolonged second stage related to extraction. Reviewed back up OBGYN is available for consultations, emergency interventions and transfer of care if indicted. ROS: No Headache, visual changes or right upper quadrant abdominal pain. Denies significant N/V. Denies urinary urgency or dysuria. All other symptoms reviewed and were negative except per HPI. In the event of an emergency, accepts the administration of blood products. Recent BP:135/88 Labs: H&H 12.6/36.2, PLT 167, Serum creatinine 0.7, AST 14, ALT 9, LDH 141, Urine PCR 0.1 Last u/s EFW: 11/12/2025 2953g, 61.8% Total maternal weight gain: 26# History of blood transfusion: No In the event of an emergency, ACCEPTS the administration of blood products OB hx: G1: 05/2023 SAB G2: 05/2024 SAB G3:07/2024 SAB 6 weeks G4: Current Medical Hx: Anxiety (stable without medication management) Surgical Hx: Tendon replacement in right thumb in 2009, teeth extraction Social Hx: No alcohol, tobacco, or marijuana use during . Limiting caffeine intake. 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 Family Hx: Father- HTN; Sister- HTN, Mom- hypothyroidism, Maternal grandmother: Heart attack, history recurrent miscarriages Problems: Gestational Hypertension [X] weekly NST & Labs [X] Monthly growth scans [X] 37 week induction of labor Allergies: NKDA Medications: PNV, LDASA FOB/partner: Ryan Akins LMP: 03/04/2025 DARIANA by LMP: 12/09/2025 U/S: @ 8wks c/w LMP dating (DARIANA by U/S 12/05/2025) Final DARIANA: 12/09/2025 Pre- weight: 145 BMI: 22.1 Blood type: AB Negative Rhogam 09/13/2025 Antibody screen: Positive - Anti D *First trimester bleeding. Had Rhogam 04/19/2025 outside of [facility] CBC: 12.1/35.6, PLT 180 Rubella: Immune VZV: Immune HBsAg: Negative HepC: Immune RPR/AB-EIA: Immune HIV: Negative Flu: 08/29/2025 COVID: 08/29/2025 PAP: 02/08/2023 NILM/HPV negative GC/CT: Negative HSV: denies in self and partner Genetic Testing: MaterniT Negative AFP - negative LDASA: indication: nulliparous, history of labile BP without medication FAS:07/26/2025 Placenta: Placental position is posterior, without previa. There is a marginal cord insertion along the superior aspect of the placenta Cord: 3VC JUN: 15.8cm EFW: 441g; 94th %tile 50gm GCT: 94 3 hr GTT: TDAP: 09/13/2025 Breast Pump: 10/02/2025 2nd antibody screen: Negative 3rd trimester H/H PLT 12.1/35.6/180 3rd trimester RPR RSV 10/30/2025 RHOGAM : 09/13/2025 GBS: 11/08/2025 Negative Physical exam: Normocephalic, atraumatic No increased work of breathing Abdomen gravid, soft, nontender. EFW 3150g FHR baseline 140, moderate variability, + accelerations, no decelerations No regular contractions, soft uterine resting tone SVE deferred Bilateral LE's no edema Mood is good. Assessment: 34 yo @ 37+1 weeks gestation by 8 wk U/S FHR 140 Cat I GBS NEG RH negative Plan: Admission to [facility] Preinduction cervical ripening with misoprostol to be followed by medical induction of labor Continuous monitoring Jacuzzi PRN. Nitrous oxide PRN. Epidural PRN Maternal Request. Reviewed plan of care with immigration investigator OBGYN Reviewed that nursing team may contact me at any time for any concerns through midwifery phone . Discussed that I would like to be notified with any prolonged decelerations (decelerations lasting 2 minutes or greater) and/or if identified category II tracing for greater than 30-minute intervals. HPI Current : Vital Signs Temperature 36.8 C 11/19/25 09:00 Pulse Rate 92 11/19/25 09:00 Respiratory Rate 17 11/19/25 09:00 Blood Pressure 135/88 H 11/19/25 09:00 Meds/Allgy Home Medications Ambulatory Orders Medication Instructions Recorded Confirmed vitamins no.159-iron tab PO 05/07/25 11/08/25 fumarate 28 mg-folic acid 800 mcg tablet ( Vitamin) aspirin 81 mg tablet 81 mg PO QDAY 06/07/2511/08 Allergies Allergies Allergy/AdvReac Type Severity Reaction Status Date / Time No Known Drug Allergies Allergy Verified 11/08/25 09:02 [facility] Active Problems All Active Problems (Updated 11/18/25 @ 15:24 by ALEXIA Obrien) Supervision of high risk , unspecified, third trimester (Acute) induced hypertension (Acute) 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 (Acute) High risk in first trimester due to recurrent loss (Acute) Surgical History Surgical History (Updated 05/07/25 @ 17:07 by Ruma Whittington MA) H/O thumb surgery Family History Family History (Updated 05/07/25 @ 17:08 by Ruma Whittington MA) Father High blood pressure Sister High blood pressure Mother Hypothyroidism Social History Social History (Updated 07/24/25 @ 18:48 by Ruma Whittington MA) Smoking Status: Never smoker Do you vape?: No Physical Abdominal Exam Vital Signs: Temp Pulse Resp BP 36.8 C 92 17 135/88 H 11/19/25 09:00 11/19/25 09:00 11/19/25 09:00 11/19/25 09:00 Plan for Labor Plan For Labor I expect patient to be DC'd or transferred within 96 hours.: Yes Conclusion/Plan Lab Results 11/19/25 08:45 11/19/25 08:45
[2025-11-19 09:20] LABS: TOTAL PROTEIN,URINE TIMED 14.0 mg/dL
[2025-11-19 09:21] LABS: ALT ALANINE AMINOTRANSFERASE 9.0 IU/L (10-60); AST ASPARTATE AMINOTRANSFERASE 14.0 IU/L (10-42); BUN - BLOOD UREA NITROGEN 9.0 mg/dL (6-20); CARBON DIOXIDE - CO2 20.0 mmol/L (21-32); CREATININE 0.7 mg/dL (0.6-1.3); GFR - MDRD 97.0 (>89)
[2025-11-19] MEDS: SODIUM CHLORIDE FLUSH 0.9% 10 ML SYRINGE IVP SCH (09:45)
--- NOTE | 2025-11-19 18:07 | PROVIDER PROGRESS NOTE ---
Labor Progress Note Labor Progress Note Labor Progress Note/Additional Text: S: Resting in room stating the contractions are becoming more intense. Rating them now 4/10 (was 2-3/10 about 2 hours ago). Talking through contractions but with increasing discomfort. Doesn't feel like it's time to ask for the epidural yet but will let the team know. Close to desiring epidural for pain management. Feeling more pressure. Tolerating position changes, coping well. Well supported by . O: FHR baseline 120, Moderate variability, + accels, isolated prolonged deceleration @ 16:02 with resolution to baseline and notification to provider by nursing staff. Primarily category I tracing. Overall reassuring tracing with moderate variability maintained throughout. Contractions palpate moderately with soft resting tone. Macy now regularly now every 1-4 minutes. SVE 0.5/100 posterior. Vertex. Membranes intact. S/p 2 doses 50mcg BC misoprostol A: 34yo @ 37+1 wks gestation Medical IOL FHR Category I gestational hypertension GBS neg Rh Neg P: Will hold on next dose of misoprosol and reevaluate tracing in about 45 minutes to determine next plan of care. Giving regularity of contractions and increasing intensity, I'm hesitant to administer another dose of misoprostol. Hopefully her contractions will continue with regularity. Continuous monitoring. Epidural per maternal request. Encourage activity while unmedication and rotations in bed on peanut ball following epidural
[2025-11-20] MEDS: LACTATED RINGERS 1,000 ML IV PRN (06:04)
[2025-11-20] MEDS ORDERED: LIDOCAINE 2%-EPI 1:100000 20 ML MDV ONE (06:11)
[2025-11-20] MEDS ORDERED: ROPIVACAINE 0.2% 200 MG/100 ML BAG EP ONE (06:11)
[2025-11-20] MEDS: LACTATED RINGERS 1,000 ML IV SCH (06:39)
[2025-11-20] MEDS ORDERED: NALOXONE 0.4 MG/ML VIAL IVP PRN ×2 (06:44→16:41)
[2025-11-20] MEDS ORDERED: ONDANSETRON 4 MG/2 ML VIAL IVP PRN (06:44)
[2025-11-20] MEDS ORDERED: ePHEDrine 50 MG/ML VIAL IVP PRN (06:44)
--- NOTE | 2025-11-20 06:44 | ANESTHESIA PROCEDURE NOTE ---
Pre-Anesthesia VS, & Labs Diagnosis Surgical Diagnosis:: induction of labor Procedure Procedure: vaginal delivery Vitals Vital Signs: Temp Pulse Resp BP Pulse Ox 36.7 C 77 18 129/77 98 11/19/25 20:13 11/20/25 05:51 11/20/25 05:51 11/20/25 05:51 11/20/25 05:51 NPO NPO: Other (clear liquids during labor) Is Patient ?: Yes Lab Results Current Lab Results: Laboratory Tests 11/19/25 08:45: WBC 8.6, RBC 3.75 L, Hgb 12.6, Hct 36.2 L, MCV 96.5, MCH 33.6 H, MCHC 34.8, RDW 13.2, Plt Count 167, MPV 11.2 H, Neut # (Auto) 6.3, Lymph # (Auto) 1.7, Evangeline # (Auto) 0.5, Eos # (Auto) 0.0, Baso # (Auto) 0.0, Absolute Nucleated RBC 0.00, Nucleated RBC % 0.0, Sodium 136, Potassium 3.7, Chloride 107, Carbon Dioxide 20 L, Anion Gap 9.0, BUN 9, Creatinine 0.7, Estimated GFR (MDRD) 97, Glucose 124 H, Calcium 8.8, Total Bilirubin 0.3, AST 14, ALT 9 L, A lkaline Phosphatase 266 H, Lactate Dehydrogenase 141, Total Protein 6.1 L, Albumin 3.5, Globulin 2.6, Albumin/Globulin Ratio 1.3, Blood Type AB NEGATIVE, Antibody Screen POSITIVE, Antibody Identification See Comments, MICHELLE, IgG Specific Not Reportable, MICHELLE, Polyspecific NEGATIVE, MICHELLE, C3d Specific Not Reportable, Crossmatch See Detail Lab results reviewed: Yes 11/19/25 08:45 11/19/25 08:45 Meds/Allgy Home Medications Ambulatory Orders Medication Instructions Recorded Confirmed vitamins no.159-iron tab PO 05/07/25 11/08/25 fumarate 28 mg-folic acid 800 mcg tablet ( Vitamin) aspirin 81 mg tablet 81 mg PO QDAY 06/07/2511/08 Allergies Allergies Allergy/AdvReac Type Severity Reaction Status Date / Time No Known Drug Allergies Allergy Verified 11/08/25 09:02 PFSH Active Problems All Active Problems Supervision of high risk , unspecified, third trimester (Acute) induced hypertension (Acute) 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 (Acute) High risk in first trimester due to recurrent loss (Acute) Surgical History Surgical History H/O thumb surgery Family History Family History Father High blood pressure Sister High blood pressure Mother Hypothyroidism Social History Social History Smoking Status: Never smoker Do you dip or chew tobacco?: No Do you vape?: No Patient requests smoking cessation consult: No Initiate information on smoking cessation: No POLST POLST CPR Status: Attempt Resuscitation (CPR) Level of Medical Intervention: Full Treatment Anesthesia Exam (Expanded) Exam General: Alert, Oriented x3 and Cooperative Dental: WNL Mouth Openin Fingerbreadth Neck Mobility: Normal Mallampati classification: I Thyromental Distance: 4-6 cm Exam Exam Vital Signs: Vital Signs x48h Pulse Resp BP Pulse Ox 11/20/25 05:51 77 18 129/77 98 11/20/25 05:44 62 120/76 Plan Plan Anesthesia Type: Epidural Consent for Procedure(s) Verified and Reviewed: Yes Code Status: Attempt Resuscitation ASA Classification ASA classification: 2-Mild systemic disease Is this case an emergency?: No
--- NOTE | 2025-11-20 07:10 | PROVIDER PROGRESS NOTE ---
Labor Progress Note Labor Progress Note Labor Progress Note/Additional Text: S: Now comfortable with epidural. Tolerating position changes, coping well. Well supported by . O: FHR baseline 125, Moderate variability, + accels, few late decelerations following epidural placement and AROM. Primarily category I tracing. Overall reassuring tracing with moderate variability maintained throughout. Contractions palpate moderately with soft resting tone. Macy now irregular SVE 3/70/-1 Vertex. AROM, copious amount of clear fluid S/p 2 doses 50mcg BC misoprostol A: 34yo @ 37+2 wks gestation Medical IOL Primarily FHR Category I gestational hypertension GBS neg Rh Neg P: Begin pitocin starting at 2mu/min. Continuous monitoring. Maintain epidural for pain management Encourage rotations in bed on peanut ball following epidural
[2025-11-20] MEDS: OXYTOCIN/SODIUM CHLORIDE 500 ML IV SCH (08:02)
--- NOTE | 2025-11-20 12:55 | PHARMACY PROGRESS NOTE ---
Best Possible Medication History Admit Date and Time: 11/19/25 0813 Home Medications Medication Instructions Recorded Confirmed Type vitamins no.159-iron 1 tab PO DAILY 05/07/25 11/20/25 History fumarate 28 mg-folic acid 800 mcg tablet ( Vitamin) aspirin 81 mg tablet 81 mg PO DAILY 06/07/2510/24 History Processed by: Pharmacy Medications reviewed in ED?: No Medication History completed: Yes Secondary Source(s): Physician records and Insurance records [facility] Statement: As the person ultimately responsible for medication therapy, providers are able to order a medication from an existing home medication list in [facility] via the "Reconcile Routine" prior to Confirmation of that medication by production support engineer. Such practice is discouraged except when the physician, in their clinical judgment, deems that a medical need exists for a medication without regard to previous use.
[2025-11-20] MEDS: ROPIVACAINE 0.2% 200 MG/100 ML BAG EP PRN (13:00)
--- NOTE | 2025-11-20 13:13 | PROVIDER PROGRESS NOTE ---
Subjective Prog Note Date Prog Note Date: 11/20/25 Prog Note Time: 12:00 Subjective Subjective: S: Comfortable with epidural O: FHR 125, moderate variability, + accelerations, Overall category I and reassuring. SVE 7/100/+1, vertex. A: 34yo @ 37+2 wks gestation Gestational hypertension pitocin at 6mu/min @ 12:00 Active labor RH negative GBS negative P: maintain epidural for pain management Continue to titrate pitocin for adequate contraction pattern continuous monitoring now. Will encouraged rotation in bed on peanut ball Anticipate . Current Medications Current Medications Current Medications: Current Medications Generic Name Dose Route Start Last Admin Trade Name Freq PRN Reason Stop Dose Admin Acetaminophen 1,000 mg 11/19/25 08:13 Acetaminophen 500 Mg Tablet PO Q8HR PRN Mild Pain or Fever>38C(100.4F) Calcium Carbonate/Glycine 1,000 mg 11/19/25 08:13 Calcium Carbonate Chew 500 Mg Tablet PO Q6HR PRN Heartburn Carboprost Tromethamine 250 mcg 11/19/25 08:13 Carboprost Tromethamine 250 Mcg/Ml Vial IM .ONCE PRN Hemorrhage Diphenhydramine HCl 25 mg 11/19/25 08:13 Diphenhydramine Inj 50 Mg/Ml Vial IVP Q6H PRN Allergy Symptoms Ephedrine Sulfate 5 mg 11/20/25 06:44 Ephedrine 50 Mg/Ml Vial IVP Q5M PRN For SBP<100;give until SBP>100 Famotidine 20 mg 11/19/25 08:13 Famotidine 20 Mg/2 Ml Vial IVP DAILY PRN heart burn Fentanyl 50 mcg 11/19/25 08:13 Fentanyl 100 Mcg/2 Ml Vial IVP Q1H PRN Severe Pain (score 7-10) Hydralazine HCl 5 - 10 mg 11/19/25 08:13 Hydralazine Inj 20 Mg/Ml Vial IVP Q20M PRN SBP> or= 160 OR DBP> or= 110 Protocol Lactated Ringer's 1,000 mls @ 125 mls/hr 11/19/25 09:00 11/20/25 13:08 Lr IV 125 mls/hr .Q8H KIRSTEN Administration Lactated Ringer's 500 mls @ 999 mls/hr 11/19/25 08:13 11/20/25 06:14 Lr IV 0 mls/hr PRN PRN Infusion distress Oxytocin/Sodium Chloride 500 mls @ 999 mls/hr 11/19/25 08:13 Pitocin/Sodium Chloride IV PRN PRN POST- HEMORR PREVENTION Protocol 999 MILLIUNIT/MIN Tranexamic Acid 1,000 mg in 100 mls @ 600 mls/hr 11/19/25 08:13 Tranexamic 1,000 Mg/100ml-Nacl IV Q30M PRN EBL >1200mL and within 3hr Ropivacaine 200 mg in 100 mls @ 0 mls/hr 11/20/25 06:44 11/20/25 13:00 Naropin 0.2% EP 10 mls/hr PRN PRN Administration PAIN Protocol Per Protocol Oxytocin/Sodium Chloride 500 mls @ 2 mls/hr 11/20/25 08:00 11/20/25 12:13 Pitocin/Sodium Chloride IV 10 milliunit/min TITR KIRSTEN 10 mls/hr Protocol Titration 2 MILLIUNIT/MIN Labetalol HCl 20 mg 11/19/25 08:13 Labetalol 20 Mg/4 Ml Syringe IVP .ONCE PRN SBP> or= 160 OR DBP> or= 110 Protocol Labetalol HCl 20 - 40 mg 11/19/25 08:13 Labetalol 20 Mg/4 Ml Syringe IVP Q10M PRN SBP> or= 160 OR DBP> or= 110 Protocol Labetalol HCl 20 - 80 mg 11/19/25 08:13 Labetalol 20 Mg/4 Ml Syringe IVP Q10M PRN SBP> or= 160 OR DBP> or= 110 Protocol Lidocaine HCl 20 ml 11/19/25 08:13 Lidocaine 1% 20 Ml Mdv ID 11/22/25 08:13 .ONCE PRN PERINEAL REPAIR Metoclopramide HCl 5 mg 11/19/25 08:13 Metoclopramide 10 Mg/2 Ml Vial IVP Q6HR PRN Nausea / Vomiting Misoprostol 600 mcg 11/19/25 08:13 Misoprostol 200 Mcg Tablet BC .ONCE PRN Hemorrhage Misoprostol 800 mcg 11/19/25 08:13 Misoprostol 200 Mcg Tablet [place] .ONCE PRN Hemorrhage Naloxone HCl 0.1 mg 11/20/25 06:44 Naloxone 0.4 Mg/Ml Vial IVP Q2M PRN RR<8 Nifedipine 10 - 20 mg 11/19/25 08:13 Nifedipine 10 Mg Capsule PO Q20M PRN SBP> or= 160 OR DBP> or= 110 Protocol Ondansetron HCl 4 mg 11/19/25 08:13 Ondansetron Odt 4 Mg Tablet PO Q4HR PRN Nausea / Vomiting Ondansetron HCl 4 mg 11/20/25 06:44 Ondansetron 4 Mg/2 Ml Vial IVP Q6HR PRN Nausea / Vomiting Oxytocin 10 unit 11/19/25 08:13 Oxytocin 10 Unit/Ml Vial IM .ONCE PRN Step One if no IV access. Sodium Chloride 10 ml 11/19/25 08:13 Sodium Chloride Flush 0.9% 10 Ml Syringe IVP PRN PRN NEEDED PER PROVIDER ORDERS Sodium Chloride 10 ml 11/19/25 09:00 11/19/25 09:45 Sodium Chloride Flush 0.9% 10 Ml Syringe IVP 10 ml Q8H KIRSTEN Administration Terbutaline Sulfate 0.25 mg 11/19/25 08:13 Terbutaline 1 Mg/Ml Vial SUBQ .ONCE PRN Tachystole Objective Vital Signs/Intake & Output Vital Signs: Vital Signs x48h Pulse Resp BP Pulse Ox 11/20/25 05:51 77 18 129/77 98 11/20/25 05:44 62 120/76 Intake & Output: Intake & Output 11/17/25 11/18/25 11/19/25 11/20/25 23:59 23:59 23:59 23:59 Intake Total 1002 / 1002 Balance 1002 / 1002 Weight (kg) 168 lb Lab Results 11/19/25 08:45 11/19/25 08:45 Other Labs: Lab Results x24hrs 11/19/25 Range/Units 08:45 Blood Type AB NEGATIVE Antibody Screen POSITIVE Antibody Identification See Comments MICHELLE, Polyspecific NEGATIVE Crossmatch See Detail
[2025-11-20] MEDS: OXYTOCIN/SODIUM CHLORIDE 500 ML IV PRN (16:02)
[2025-11-20] MEDS ORDERED: hydrALAZINE INJ 20 MG/ML VIAL IVP PRN ×2 (16:41)
[2025-11-20] MEDS ORDERED: LABETALOL 20 MG/4 ML SYRINGE IVP PRN ×2 (16:41)
[2025-11-20] MEDS ORDERED: LABETALOL 5 MG/1 ML 20 ML MDV IVP PRN (16:41)
[2025-11-20] MEDS ORDERED: OXYTOCIN/SODIUM CHLORIDE 500 ML IV PRN (16:41)
[2025-11-20] MEDS ORDERED: SIMETHICONE CHEW 80 MG TABLET PO PRN (16:41)
--- NOTE | 2025-11-20 16:42 | DELIVERY NOTE ---
OB Labor and Delivery Note Delivery Comments (Free Text/Narrative) Delivery Comments (Free Text/Narrative): This 34 -year-old, G 4 P 0030 @ 37+1 weeks gestation by LMP presented yesterday (11/19/2025) morning for scheduled medical induction of labor for gestational hypertension. She received misoprostol 50mcg x2 dose for preinduction cervical ripening then, following epidural placement her bag of zeng were released and pitocin was initiated to further augment her labor course. Oxytocin maximum infusion 12mu/min. GBS negative. FHR pattern demonstrated 125 baseline in a category I prior to second stage. Normal labor course. AROM occurred 11/20/2025 @ 06:55. She then progressed to complete/complete @ 14:33 and second stage began. : Normal spontaneous vaginal delivery of a viable male infant on 11/20/2025 @ 15:55. No nuchal cord. The was placed on maternal abdomen, stimulated, dried and placed skin to skin. Apgars 9 & 9 @ 1 & 5 minutes. The umbilical cord was allowed to stop pulsating at which time it was doubly clamped by delivering provider and cut by FOB. 3VC. Cord blood was obtained. Fundal massage and gently cord traction applied for active management of the third stage, placenta delivered spontaneously and intact and appeared normal @ 16:07. EBL 250. Placenta was not sent to pathology. Pitocin administered via IV for hemostasis and allowed to run freely. Uterine massage was performed until uterus was deemed firm. weight pending at this time. Inspection of the perineum noted an second degree midline laceration. The laceration was repaired under epidural anesthesia with running 3-0 vicryl rapide, repaired in standards fashion under sterile conditions. Upon re- inspection the patient was hemostatic. Uterus again massaged and found to be firm. Needle and sponge counts were correct. Uterine fundus firm and there is no excessive bleeding. Tissues well approximated. Skin to skin initiated. Family bonding well. Both mother and baby are in stable condition.
[2025-11-20] MEDS: ACETAMINOPHEN 500 MG TABLET PO PRN (17:09)
[2025-11-20] MEDS: IBUPROFEN 600 MG TABLET PO PRN (17:10)
[2025-11-20] MEDS: DOCUSATE SODIUM 100 MG CAPSULE PO SCH (21:48)
--- NOTE | 2025-11-21 10:51 | Discharge Summary ---
Discharge Summary HOSPITAL COURSE Hospital Course: Date of Admission: 11/19/2025 Date of Discharge: 11/21/2025 Diagnosis on Admission: 1. 34 yo @ 37+1 weeks gestation by 8 wk U/S 2. Gestational hypertension 3. FHR 140 Cat I 4. GBS NEG 5. RH negative Diagnosis on Discharge: 1. 34yo PPD#1 s/p TSVD viable male 2. 3. Normal recovery Brief History: She is a patient of [facility] who presented on 11/19/2025 for induction of labor secondary to gestational hypertension. SVE was initially deferred due to early gestation and nulliparity. She received 2 doses of 50mcg BC misoprostol for effective pre-induction cervical ripening. Epidural was placed per maternal request. AROM occurred 11/20/2025 @ 0655 and was noted to be a moderate amount of clear fluid. She spontaneously progressed to deliver a viable male infant on 11/20/2025 @ 1555 following a 88 minute second stage. Perineum was found to have a 2nd degree laceration which was repaired using a 3- [address]-1 needle in standard fashion and under sterile conditions. Apgars were 9/9 at 1 and 5 minutes respectively. EBL 250 mL. She has been doing well in her course. She is ambulating and tolerating a regular diet. She is urinating without difficulty and her lochia is normal. Her pain is well controlled with oral medications. She will be discharged home today on day #1 with instructions to continue taking her vitamin while and to continue taking Ibuprofen and Tylenol over the counter as needed for pain management. She intends to follow up with myself at [facility] in 1 week for routine visit or sooner if needed. She has been given precautions to call if she has any worsening fevers, chills, abdominal pain, increased vaginal bleeding or foul smelling vaginal lochia. Physical Exam: Normocephalic, atraumatic. Heart RRR w/o M/G/R, lungs CTAB, abdomen soft and nontender with fundus firm at U-1, perineum intact, light lochia rubra, bilateral LE's no edema. Mood is good. ALLERGIES Allergies Allergy/AdvReac Type Severity Reaction Status Date / Time No Known Drug Allergies Allergy Verified 11/08/25 09:02 MEDICATIONS Ambulatory Orders Medication Instructions Recorded Confirmed vitamins no.159-iron 1 tab PO DAILY 05/07/25 11/20/25 fumarate 28 mg-folic acid 800 mcg tablet ( Vitamin) aspirin 81 mg tablet 81 mg PO DAILY 06/07/2510/24 PHYSICAL EXAM AT DISCHARGE Vital Signs: Vital Signs x48h Temp Pulse Resp BP 11/21/25 08:21 97.9 F 58 L 19 131/79 H LABS 11/19/25 08:45 11/19/25 08:45 Discharge Plan Discharge Patient Disposition: Home, Self Care Prescriptions: Continued Vitamin 28 mg iron- 800 mcg tablet 1 tab PO DAILY aspirin 81 mg tablet 81 mg PO DAILY Print Language: Estonian Patient Instructions: After a Vaginal , : Caring for Yourself Follow-up Care: Winifred Rocha ARNP [Primary Care Provider, Obstetrics/Gynecology]
[2025-11-21 16:30] VITALS: O2SAT 97
[2025-11-21 19:22] VITALS: BP 129/84; TEMP 97.7
--- NOTE | 2025-11-21 19:24 | Labor Flowsheet ---
Labor Flowsheet Datetime Report Generated by CPN: 11/21/2025 19:24 Datetime: 11/21/2025 19:09 VITAL SIGNS NBP Sys/Radha/Mean (mmHg): 129 : 84 : 95 Pulse: 70 Datetime: 11/20/2025 17:45 Stage of : Recovery Datetime: 11/20/2025 17:00 Membranes Ruptured Date/Time: 11/20/2025 06:55 Datetime: 11/20/2025 16:15 PAIN Pain Scale: 0 Datetime: 11/20/2025 16:00 Temperature (C): 36.9 Temperature Route: Oral Datetime: 11/20/2025 15:55 COMMUNICATION Communication: RN at Bedside; Provider at Bedside Datetime: 11/20/2025 15:45 UTERINE ACTIVITY Monitor Mode: External Frequency (min): 2-3.5 Quality: Strong Pattern: Normal: <= 5 Contractions in 10 Minutes Resting Tone (Palpate): Relaxed Pitocin Checklist: At Least 1 Acceleration of 15 bpm x 15 Seconds in 30 Minutes or Adequate Variability; No More than 2 Variable Decelerations > 60 Seconds in Duration and decreasing >60 bpm in 30 minutes; No More than 5 Uterine Contractions in 10 Minutes for any 20 Minute Interval; Uterus Palpates Soft between Contractions; IUPC Resting Tone less than 25 mmHg ASSESSMENT A Monitor Mode: External US FHR Baseline Rate : 135 Variability: Moderate 6-25 bpm Accelerations: 15X15 Decelerations: Late Category: Category II LaborFlag: Labor Datetime: 11/20/2025 14:33 VAGINAL EXAM Dilatation (cm): 10.0 Effacement (%): 100 Station: 1 Exam by: Avrey Rocha, CNConchita Vaginal Bleeding: Normal Show Datetime: 11/20/2025 12:12 MEDICATIONS Pitocin (milliunits): Increased to @ 10 Datetime: 11/20/2025 12:00 Duration (sec): 80-140 Datetime: 11/20/2025 11:56 Cervix, Consistency: Soft Cervix, Position: Anterior Datetime: 11/20/2025 11:42 Patient Position/Activity: High Fowlers Datetime: 11/20/2025 10:47 Monitor Interventions for UA: [place] Adjusted Datetime: 11/20/2025 10:24 Provider Notified (Name): Burckhardt, CNM Datetime: 11/20/2025 10:15 SpO2 (%): 98 Datetime: 11/20/2025 07:25 I/O Interventions: Rae Cath Inserted Datetime: 11/20/2025 06:55 Membrane Status: Ruptured Membranes Rupture Method: Artificial Amniotic Fluid Color: Clear Amniotic Fluid Amount: Large Amniotic Fluid Odor: None Membrane Comments: Provider Guillermolindsey used amniohook to break water Datetime: 11/20/2025 06:40 Oxygen Method: Room Air Datetime: 11/20/2025 06:39 Respirations: 18 Datetime: 11/20/2025 06:24 Epidural Positioning: Sitting Datetime: 11/20/2025 06:23 Epidural Procedure: Cath Placed Datetime: 11/20/2025 06:16 PROCEDURE TIME OUT Procedure Verify: Correct Patient Position Datetime: 11/20/2025 06:14 Patient Care Comments: IV Bolus paused by anesthesia provider Princess Hand ANESTHESIA Anesthesia Plans: Epidural Anesthesia Comments: Consent signed Datetime: 11/20/2025 06:04 PATIENT CARE IV/Blood Work: IV Bolus Started Datetime: 11/20/2025 06:00 Contraction Comments: Unable to detyermine due patient moving around Comments: Interrupted strip due patient using BR Datetime: 11/20/2025 05:54 Monitor Interventions for FHR: Ultrasound Adjusted Datetime: 11/20/2025 05:28 Notification Reason: Labor Status Communication Comments: SBAR report given to Provider Chente Rocha about FHR/ VE/ and CTX pattern. Provider updated POC with new orders to start PIT after patient receiving an epidural. Patient desires an epidural before starting PIT Datetime: 11/20/2025 04:19 Pain Relief Measures: Comfort Measures Pain Coping: Talking Through Contractions; Breathing Through Contractions Comfort Measures: Breathing/Relaxation; Family Support Datetime: 11/20/2025 02:35 MATERNAL ASSESSMENT Level of Consciousness: Alert DTR's/Clonus: No Clonus Headache: Denies Breath Sounds, Left: Clear and Equal Breath Sounds, Right: Clear and Equal Nausea/Vomiting: Denies RUQ Epigastric Pain: Denies Datetime: 11/20/2025 02:21 Teaching Comments: Pt expresses feeling tired but able to rest and sleep for an hour before going up to the BR. Wanting to try new positions to help her labor progression Datetime: 11/19/2025 20:18 TEACHING Instructional Method: Verbal Datetime: 11/19/2025 16:29 FHR Baseline Changes: No Baseline Change Datetime: 11/19/2025 16:05 Provider Reviewed Strip: Yes Datetime: 11/19/2025 13:40 Cervical Ripening Agents: Cytotec @ Medication Comments: second dose Datetime: 11/19/2025 12:17 Pain Presence: Intermittent Pain Type: Cramping Pain Location: Abdomen Datetime: 11/19/2025 09:30 Plan of Care: Plan of Care Discussed; Induction Unit Routine: Lynch to Room; Call [place]; Visiting Policy; Security; Phone/Cell Phone Use; Photography; Unit Personnel; Monitoring; IV Pumps Labor/Induction: Cervical Ripening; Induction Pain Management: IV Narcotics; Epidural; Pain Scale/Goals; Comfort Measures
== END 2025-11-21 19:09 | disposition home or self-care (01) | DRG 807 ==
LOC: WFO 08:03 → FBP 08:06
PROVIDERS: ADMIT Nurse Practitioner; ATTEND Nurse Practitioner
DX: Z3A.37 37 weeks gestation of pregnancy; Z79.82 Long term (current) use of aspirin; Z37.0 Single live birth; O13.4 Gestational [pregnancy-induced] hypertension without significant proteinuria, complicating childbirth; O70.1 Second degree perineal laceration during delivery